=== PATIENT | female | born 1940 | race Caucasian/White ===

== ENCOUNTER 2019-04-03 11:31 | Emergency (ER) | payer MEDICARE ==
[2019-04-03 11:57] LABS: BASOPHILS % (AUTO) 0.9 % (0.0-5.0); EOSINOPHILS % (AUTO) 1.2 % (0.0-8.0); HEMATOCRIT 43.7 % (36-48); LYMPHOCYTES % (AUTO) 10.1 % (21.0-51.0); MEAN CORPUSCULAR HEMOGLOBIN 31.4 pg (27.0-33.0); MEAN CORPUSCULAR HGB CONC 34.3 g/dL (32.0-36.0); MEAN CORPUSCULAR VOLUME 91.6 fL (79-99); MONOCYTES % (AUTO) 8.2 % (3.0-13.0); NEUTROPHILS % (AUTO) 79.6 % (40.0-77.0); PLATELET COUNT (AUTO) 307 K/uL (130-400); RED BLOOD CELL COUNT(AUTO) 4.77 MIL/uL (4.00-5.50); RED CELL DISTRIBUTION WIDTH 12.9 % (11.0-15.5); WHITE BLOOD COUNT (AUTO) 9.4 K/uL (4.8-10.8)
[2019-04-03 12:08] LABS: CREATININE 0.7 mg/dL (0.5-1.5)
[2019-04-03] MEDS ORDERED: ONDANSETRON HCL 4 MG/2 ML VIAL ONE (12:49)
[2019-04-03] MEDS ORDERED: MORPHINE SULFATE 2 MG/ML 1ML SYG ONE (12:50)
[2019-04-03] MEDS ORDERED: CEFTRIAXONE SODIUM 1 GM ONE (12:50)
[2019-04-03] MEDS ORDERED: SODIUM CHLORIDE 0.9% 50 ML IV ONE (12:50)
== END 2019-04-03 13:41 | disposition home or self-care (01) ==
LOC: EDH 11:31
DX: L03.115 Cellulitis of right lower limb (principal)
CPT/HCPCS: 36415; 80048; 83605; 85025; 96374; 96375; 99284; J0696; J2405